=== PATIENT | male | born 1955 | race Caucasian/White ===

== ENCOUNTER 2018-06-10 07:44 | Day surgery (SDC) | payer BC ==
[~2018-06-10 07:44] MED LIST: Lactated Ringers 1,000 ML IV SCH; Lidocaine 2% 5 ML SDV ONE; Midazolam 1 MG/ML 2 ML SDV ONE; Propofol 200 MG/20 ML SDV ONE; fentaNYL 100 MCG/2 ML SDV ONE
--- NOTE | 2018-06-10 08:21 | PCM.PREANE ---
Preanesthetic Assessment - Anesthesia/Transfusion/Family Hx Anesthesia History: Prior Anesthesia Without Reaction Other Type of Anesthesia Reaction Comment: DENIES ANY PROBLEMS WITH ANESTHESIA Family History of Anesthesia Reaction: No Transfusion History: No Prior Transfusion(s) Intubation History: Unknown - Review of Systems General: No Symptoms Pulmonary: No Symptoms Cardiovascular: No Symptoms Gastrointestinal: Diarrhea ('leaking of watery discharges') Neurological: No Symptoms, Change in Speech - Physical Assessment O2 Sat by Pulse Oximetry: 96 Respiratory Rate: 16 Vital Signs: Last Vital Signs Temp 36.2 C 06/10/18 08:02 Pulse 74 06/10/18 08:02 Resp 16 06/10/18 08:02 BP 128/84 06/10/18 08:02 Pulse Ox 96 06/10/18 08:02 Height: 1.83 m Weight: 98.43 kg ASA Class: 2 Mental Status: Alert & Oriented x3 Airway Class: Mallampati = 2 Dentition: Reports: Normal Dentition, Spring(s) (multiple upper and lower (right and left - back)) Thyro-Mental Finger Breadths: 3 Mouth Opening Finger Breadths: 3 ROM/Head Extension: Limited/Partial Lungs: Clear to Auscultation, Normal Respiratory Effort Cardiovascular: Regular Rate, Regular Rhythm - Allergies Allergies/Adverse Reactions: Allergies Allergy/AdvReac Type Severity Reaction Status Date / Time No Known Allergies Allergy Verified 06/06/18 14:13 - Blood Blood Available: No - Anesthesia Plan Pre-Op Medication Ordered: None - Acknowledgements Anesthesia Type Planned: MAC Pt an Appropriate Candidate for the Planned Anesthesia: Yes Alternatives and Risks of Anesthesia Discussed w Pt/Guardian: Yes Pt/Guardian Understands and Agrees with Anesthesia Plan: Yes PreAnesthesia Questionnaire - Past Health History Medical/Surgical History: Denies Medical/Surgical History HEENT History: Reports: Other (See Below) Other HEENT History: wears glasses Cardiovascular History: Reports: None Respiratory History: Reports: None Gastrointestinal History: Reports: Gastritis, GERD, Hemorrhoids Genitourinary History: Reports: Prostate Disorder Musculoskeletal History: Reports: Arthritis Other Musculoskeletal History: has arthritis in hands Neurological History: Reports: Concussion Psychiatric History: Reports: None Endocrine/Metabolic History: Reports: None Hematologic History: Reports: None Immunologic History: Reports: None Oncologic (Cancer) History: Reports: Basal Cell Carcinoma, Prostate Other Oncologic History: hx skin cancer Dermatologic History: Reports: Venous Stasis Dermatitis Other Dermatologic History: due to varicose veins - Past Surgical History Head Surgeries/Procedures: Reports: None Cardiovascular Surgical History: Reports: Varicose Other Cardiovascular Surgeries/Procedures: hx of varicose vein ligations GI Surgical History: Reports: Colonoscopy, EGD Male Surgical History: Reports: Vasectomy Musculoskeletal Surgical History: Reports: Other (See Below) Other Musculoskeletal Surgeries/Procedures:: repair of hammer toe right foot ( has screws), 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 Dermatological Surgical History: Reports: Skin Biopsy - SUBSTANCE USE Smoking Status *Q: Former Smoker Tobacco Use Within Last Twelve Months: No Days Per Week of Alcohol Use: 7 Number of Drinks Per Day: 1 Total Drinks Per Week: 7 Recreational Drug Use History: No - HOME MEDS Home Medications: Home Meds Omeprazole [priLOSEC OTC] 20 mg PO DAILY 12/22/13 [History] Cyanocobalamin (Vitamin B12) [Vitamin B12] 1,000 mcg PO DAILY 04/02/16 [History] Loratadine [Claritin] 10 mg PO ASDIRECTED PRN 04/02/16 [History] Aspirin [Adult Low Dose Aspirin EC] 81 mg PO DAILY 06/06/18 [History] Clobetasol [Clobetasol Propionate 0.05% Cream] 1 dose TOP BID PRN 06/06/18 [ History] - CURRENT (IN HOUSE) MEDS Current Meds: Current Medications Lactated Ringer's (Ringers, Lactated) 1,000 mls @ 125 mls/hr IV ASDIRECTED DAVID Last Admin: 06/10/18 08:10 Dose: 125 mls/hr Discontinued Medications Fentanyl (Sublimaze) Confirm Administered Dose 100 mcg .ROUTE .STK-MED ONE Stop: 06/10/18 07:05 Lidocaine (Xylocaine-Mpf 2%) Confirm Administered Dose 5 ml .ROUTE .STK-MED ONE Stop: 06/10/18 07:05 Midazolam HCl (Versed 1 Mg/Ml) Confirm Administered Dose 2 mg .ROUTE .STK-MED ONE Stop: 06/10/18 07:05 Propofol (Diprivan 20 Ml) Confirm Administered Dose 400 mg .ROUTE .STK-MED ONE Stop: 06/10/18 07:05
[2018-06-10] MEDS ORDERED: Glycopyrrolate 0.2 MG/ML SDV ONE ×2 (09:33→09:49)
[2018-06-10] MEDS ORDERED: Propofol 200 MG/20 ML SDV ONE (09:51)
--- NOTE | 2018-06-10 10:17 | PCM.OPNOTE ---
- General Post-Op/Procedure Note Date of Surgery/Procedure: 06/10/18 Operative Procedure(s): egd w bx. colonoscopy w bx Findings: see dict [id number] Pre Op Diagnosis: esophagitis and change in bowel habbits Post-Op Diagnosis: Same Anesthesia Technique: Moderate Sedation Primary Surgeon: Kishor Bhakta Pathology: egd bx rectal bx Complications: None Condition: Good
--- NOTE | 2018-06-10 10:19 | PCM.POSTAN ---
POST ANESTHESIA ASSESSMENT - MENTAL STATUS Mental Status: Alert, Oriented - RESPIRATORY Respiratory Status: Respiratory Rate WNL, Airway Patent, O2 Saturation Stable - CARDIOVASCULAR CV Status: Pulse Rate WNL, Blood Pressure Stable - GASTROINTESTINAL GI Status: No Symptoms - PAIN Pain Score: 0 - POST OP HYDRATION Hydration Status: Adequate & Stable
[2018-06-10 10:38] VITALS: BP 113/72
--- NOTE | 2018-06-10 14:35 | OR ---
SURGEON: Kishor Bhakta MD DATE OF PROCEDURE: 06/10/2018 PREOPERATIVE DIAGNOSES: 1. Severe esophagitis history. 2. Change in bowel habits. PROCEDURES PERFORMED: Esophagogastroduodenoscopy with biopsy, and colonoscopy with biopsy. PROCEDURE IN DETAIL: EGD: The patient was taken to the endoscopy room, and with the STONER OUT, Diprivan was administered. A well-lubricated EGD scope was gently inserted through the oropharynx, down the esophagus, passing through the gastroesophageal junction, into the stomach. The mucosa was examined upon the passage. Any etiology will be noted. Once in the stomach, we continued to advance to the distal antrum, passed through the pylorus into the second portion of the duodenum. Again, the mucosa was examined for any abnormality and etiology. The scope was then retrieved back to the stomach and then retroflexed to look at the fundus of the stomach. If a biopsy was indicated, we will biopsy the antrum, body, and gastroesophageal junction. The air will be sucked out while the scope is retrieved to reduce the patient's discomfort. The patient tolerated the procedure well. There were no intraoperative complications. Dr. Bhakta was present through the whole procedure. Prior to surgery, a time-out had been called, the patient identified, procedure identified and antibiotic administered. Colonoscopy procedure: The patient was taken to the endoscopy room. A time out was called, patient identified, and procedure identified. Diprivan was then administrated. Patient went from awake to sleep, hearing doctor talking or door closing is normal. Perineum inspection and digital examination were then performed. A well- lubricated colonoscope was gently inserted through the rectum, advanced past the rectosigmoid junction, the descending colon, splenic flexure, transverse colon, hepatic flexure, ascending colon, arrived to the cecum. Cecum was identified as dictated in the finding. Then the scope was carefully withdrawn while attention was paid to the mucosal surface for any abnormality. Air will be sucked out during the scope withdrawal. At the rectum, retroflexed to examine any rectal diseases, fistula or hemorrhoids. During mucosal examination, abnormality was noted; biopsy performed. Patient tolerated procedure well. There were no intraoperative complications, and Dr. Bhakta was present throughout the whole procedure. FINDINGS: EGD findings: 1. The patient is easily sedated with STONER OUT and Diprivan. The patient is soundly snoring. 2. Oropharynx and proximal esophagus are free of disease. The distal esophagus have maybe early Schatzki ring and also moderate salmon-colored change consistent with moderate acid reflux. Stomach rugae is normal in appearance. Antrum is totally normal and duodenum is grossly normal. Scope retrieved back to the stomach. Retroflexed look at the fundus of stomach, there is no hiatal hernia. On the greater curvature, there is a large amount of polyp. There were small couple of them were being biopsied and also biopsy done at antrum, body, GE junction at 40 and sucked out the air while scope coming out. During the whole study, there was no ulcer, no blood, no bile, no food particle. Colonoscopy findings: 1. The patient is easily sedated with STONER OUT and Diprivan. The patient is soundly snoring. 2. Bowel prep is suboptimum and marginally acceptable, not quite sure. Bowel prep is below average, but is acceptable. The patient has a lot of stool blocks from the tremendous amount of diverticula observed. So, the bowel prep was said as good but the stool block cannot get out from the diverticula and obscure the colonoscope, and block the colonoscope and makes the colonoscopy first time compromised because half the jamilah was covered by the stool ball. The scope was then retrieved, took out and cleaned up again, and then redo second time colonoscopy because of the stool ball, the second time is much more efficient. Cecum indicated by ileocecal fold, one-to-one indentation, light emittance, and appendiceal orifice. Mucosa examined upon scope pulling out. The patient does not have polyp, mass, growth, inflammation, stricture, ulceration, AV malformation, blood, ulcer, none of those, but at the rectum, there are moderate internal hemorrhoids, and also one area is a little bit prominent, it was biopsied. The patient has mild external hemorrhoids, so the little thing we saw while doing rectal examination is internal hemorrhoid, not a polyp and a biopsy was done. The patient would benefit from repeat colonoscopy in 10 years from today or if clinically indicated otherwise. The patient has tremendous amount of diverticula, mostly in the left, a little bit in the transverse, a little bit in right colon, so patient has angeles diverticulosis. No signs or symptoms of diverticulitis and again, patient will benefit from repeat colonoscopy in 10 years from today or if clinically indicated otherwise. As always, thank you for the kind referral. AMANDA DANIELS /[id number] JACQUIE
== END 2018-06-10 10:47 | disposition home or self-care (01) ==
LOC: MW.SDS 07:44
PROVIDERS: ATTEND Surgery
DX: K20.9 Esophagitis, unspecified (principal); K31.7 Polyp of stomach and duodenum; R19.4 Change in bowel habit; K64.8 Other hemorrhoids; K57.30 Diverticulosis of large intestine without perforation or abscess without bleeding; H91.93 Unspecified hearing loss, bilateral; Z87.891 Personal history of nicotine dependence
CPT/HCPCS: 43239; 45380; J2250; J2704; J3010; J3490; J7120; 88305; 88312